=== PATIENT | male | born 1990 | race Caucasian/White ===

== ENCOUNTER → 2017-02-24 | Outpatient (CLI) | payer BC ==
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
== END ==
LOC: SLEEP 11:12
PROVIDERS: ATTEND Internal Medicine
DX: R06.83 Snoring (principal); E66.9 Obesity, unspecified; Z87.891 Personal history of nicotine dependence; Z68.42 Body mass index [BMI] 45.0-49.9, adult
CPT/HCPCS: 99211

== ENCOUNTER → 2017-06-02 | Outpatient (CLI) | payer BC ==
--- NOTE | 2017-06-02 21:49 | PN ---
DATE OF SERVICE: 06/02/2017 This patient is a 27-year-old gentleman who has been followed in the sleep center for treatment of obstructive sleep apnea/hypopnea syndrome. Recently the patient had a diagnostic sleep study, then CPAP titration, and I discussed results of the tests with the patient in detail. He has moderate obstructive sleep apnea/hypopnea syndrome with apnea/hypopnea index 25 and in REM sleep in severe range, up to 60 per hour with oxygen desaturation to 86.2%. Results of the CPAP titration were successful. Patient's respiration was under control with the CPAP at 11. Recently patient was started on treatment with CPAP at the pressure 11 cm of water. He used it for the last 2 months. The patient brought in his CPAP unit. I checked it. CPAP pressure is 11. Usage is 23 out of 30 nights, but usage for more than 4 hours is only 6 out of 30 nights. Patient explained that he fell asleep with the mask, but in the middle of the night he might take the mask off without remembering that. Then the morning he wakes up without the mask. Apnea/hypopnea index from the machine is 8.1. Leak is 22 L/minute, which is acceptable. Recently patient was started with a full-face mask. Then his mask was changed to the Dream line mask. MEDICATIONS: None. During physical exam, patient is a pleasant 27-year-old gentleman in no distress. VITAL SIGNS: BP 142/81, HR 104, RR 16. Weight 320. Temperature 98.2. Oxygen saturation at room air 98%. HEENT: PERRLA. EOMI. Evaluation of oropharynx showed tongue protrudes midline; low position of soft palate. NECK: Supple. No JVD. Thyroid is not palpable. LUNGS: Clear to percussion and to auscultation. Good air exchange. No wheezing or rhonchi. HEART: S1, S2 regular. No murmurs, gallops or rubs. ABDOMEN: Obese. EXTREMITIES: No clubbing or cyanosis. HELIOTHERAPIST: Awake, alert and oriented x3. Cranial nerves 2 through 7 are intact. There is no fasciculation or atrophy noted. No focal deficits observed. IMPRESSION: 1. Moderate obstructive sleep apnea/hypopnea syndrome, improved with CPAP at the pressure of 11 cm of water. Patient is using CPAP equipment but taking the mask off in the middle of the night during sleep. 2. Obesity; body mass index of 45.7. 3. 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 4. Status post femur fracture with surgical treatment with a paul. PLAN: 1. Patient should continue to use CPAP equipment every night for the whole night. 2. We may consider using a different style of nasal pillow mask with a chin strap. 3. Losing weight. 4. Sleep hygiene with regular time in bed for at least 8 hours. 5. No driving if feeling any sleepiness. 6. Follow-up visit in one month. Sincerely, Elio Beyer. , PhD, FAASM. Diplomat of [place] [employer], Sleep Medicine Board by [place] [employer] [place] [employer] Medicine [employer] Tester of [facility] [place] [facility]
== END | disposition home or self-care (01) ==
LOC: SLEEP 14:55
PROVIDERS: ATTEND Internal Medicine
DX: G47.33 Obstructive sleep apnea (adult) (pediatric) (principal); R63.4 Abnormal weight loss

== ENCOUNTER → 2017-06-16 | Outpatient (CLI) | payer BC ==
--- NOTE | 2017-06-16 22:36 | PN ---
PROGRESS NOTE Date of Service: DATE OF SERVICE: 06/16/2017 A 27-year-old gentleman who has been followed in sleep center for treatment of obstructive sleep apnea-hypopnea syndrome. I saw him 2 weeks ago. At that time, we changed his mask to a small nasal mask AirFit and chin strap. The patient successfully using his CPAP equipment at the present time. According to him and family, he was able to use his CPAP machine for the last 2 weeks every night for more than 4 hours. Apnea- hypopnea index from the last night is totally normal at 2.6. Average number for the last month is 5.7, but that could be because of previously with different mask, the patient had more leak and apnea-hypopnea index was higher. Machine does not let me look at the patient usage information for every night. He does not complain of any significant excessive daytime sleepiness. [place] Sleepiness Scale is 3. 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 MEDICATIONS: None. PHYSICAL EXAMINATION: GENERAL A pleasant patient without any distress. VITAL SIGNS BP 146/82, HR around 100, temperature is 98.1, oxygen saturation at room air 98%. Weight 317. Height 5 feet 9 inches. BMI 46.9. HEENT PERRLA, EOMI, evaluation of oropharynx showed tongue protrudes midline, moderately low position of soft palate. Neck Supple, no JVD. Thyroid is not palpable. LUNGS Clear to percussion and to auscultation. Good air exchange. No wheezing or rhonchi. HEART S1, S2 regular. No murmurs, gallops, or rubs. ABDOMEN Slightly obese. EXTREMITIES No clubbing or cyanosis. DIRECTOR OF COUNTERINTELLIGENCE Awake, alert, and oriented X3. Cranial nerves 2 to 7 intact. There is no fasciculation or atrophy. noted. No focal deficits observed. IMPRESSION: 1. Obstructive sleep apnea hypopneas syndrome. The patient improved his compliance with treatment after changing mask. He has moderate obstructive sleep apnea- hypopnea syndrome with apnea-hypopnea index of 25.5, benefiting from treatment with continuous positive airway pressure. 2. Obesity. 3. Status post femur fracture. PLAN: 1. 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 He should continue to use his CPAP equipment every night for the whole night. 2. Losing weight. 3. Sleep hygiene with regular time in bed for at least 8 hours. 4. I will see patient for followup visit in 2 weeks to document his compliance with treatment for the whole month. 5. No driving if feeling any sleepiness, precautions related to driving. He is aware about civil and criminal liability for unsafe driving. 6. We will consider to proceed of maintenance of wakefulness test to document normal alertness of the patient during the day. Elio Beyer MD, PhD, FAASM Diplomat of [place] [employer] [place] [employer] Record Press Supervisor of [facility] [place] MMODL / IJN: [id number] /
== END | disposition home or self-care (01) ==
LOC: SLEEP 16:11
PROVIDERS: ATTEND Internal Medicine
DX: G47.33 Obstructive sleep apnea (adult) (pediatric) (principal); E66.9 Obesity, unspecified

== ENCOUNTER → 2017-06-30 | Outpatient (CLI) | payer BC ==
--- NOTE | 2017-06-30 23:51 | PN ---
PROGRESS NOTE DATE OF SERVICE: 06/30/2017 This patient is a 27-year-old gentleman who has been followed in the sleep clinic for treatment of obstructive sleep apnea-hypopnea syndrome. Recently the patient was diagnosed with obstructive sleep apnea in moderate range with apnea-hypopnea index 25.5. He was started on treatment with CPAP, and now he has come for a follow-up visit. He has brought his CPAP unit. According to the patient, he is able to use his machine every night without significant problems related to the pressure or mask. No snoring with the machine, according to the family. [place] Sleepiness Scale today is 2. I checked the patient's CPAP unit. CPAP pressure is 11 cm of water. RAMP is 45 minutes. Humidity is at the level of 4. Usage for the left month's period is 28 out of 30 nights and 22 out of 30 nights for more than 2 hours, which is acceptable compliance; it is more than 70% of usage. Leak is 12 L/minute, which is acceptable. Apnea-hypopnea index for the last month is 4.1. For the last week, usage is 7 out of 7 nights and 6 out of 7 nights more than 4 hours. Average usage if 5.6 hours. Leak is 6 L/minute. Apnea-hypopnea index is 3.4. Subsequently the patient is improving his compliance with the treatment and his breathing normalized on the treatment. He does not have any symptoms of sleepiness during the day. MEDICATIONS: None. . PHYSICAL EXAM: This is a 27-year-old gentleman without distress. VITAL SIGNS: BP 155/90, HR 98, RR 16, temperature temp 98.5, oxygen saturation at room air 99%. Height 5 feet 9 inches, weight 317, BMI 46.8. HEENT: PERRLA, EOMI. Evaluation of oropharynx showed tongue protrudes midline; moderately low position of soft palate. NECK: Supple. No JVD. Thyroid is not palpable. LUNGS: Clear to percussion and to auscultation. Good air exchange. No wheezing or rhonchi. HEART: S1, S2 irregularly irregular. ABDOMEN: Obese. EXTREMITIES: No clubbing or cyanosis. PLAN COORDINATOR: Awake, alert and oriented x3. Cranial nerves 2 to 7 intact. There is no fasciculation or atrophy noted. No focal deficits observed. IMPRESSION: 1. Moderate obstructive sleep apnea-hypopnea syndrome; apnea-hypopnea index 25.5, mostly under control with CPAP at 11 cm of water. At present patient has demonstrated good compliance on most on control with CPAP at 11 cm of water. At present patient demonstrated good compliance with treatment, benefitting from treatment. No symptoms of excessive daytime sleepiness. [place] Sleepiness Scale was 2. 2. Obesity. 3. Status post femur fracture. PLAN: 1. 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 He should continue to use his CPAP equipment every night for the whole night. 2. Losing weight. 3. Sleep hygiene with regular time in bed, preferably for 7-1/2 hours. 4. Precautions related to driving. No driving if feeling any sleepiness. At the present time patient does not feel any sleepiness. He promised to follow recommendations. 5. We will schedule patient for maintenance of wakefulness test for objective documentation. He has normal alertness during the day. Sincerely, Elio Beyer MD, PhD, FAASM Diplomat of [place] [employer] [place] [employer] Medicine District Claims Manager of [facility] [place] MMODL / GERALDON: [id number] /
== END | disposition home or self-care (01) ==
LOC: SLEEP 16:45
PROVIDERS: ATTEND Internal Medicine
DX: G47.33 Obstructive sleep apnea (adult) (pediatric) (principal); E66.9 Obesity, unspecified